=== PATIENT | female | born 1990 | race Caucasian/White ===

== ENCOUNTER 2024-08-31 11:48 | Emergency (ER) | payer BC, SELFPAY ==
[2024-08-31 12:00] VITALS: BP 127/71; PULSE 77; TEMP 37; O2SAT 100; BMI 21.8
--- NOTE | 2024-08-31 12:07 | ED.GENADUL1 ---
HPI HPI - General Adult General Chief complaint: Eye Problems Stated complaint: ENLARGED R PUPIL Time Seen by Provider: 08/31/24 12:03 Source: patient Mode of arrival: walk-in Limitations: no limitations History of Present Illness HPI narrative: 33-year-old female presents for a dilated right pupil that she noticed this morning. She denies any sort of trauma. She states that her vision is blurred in the right eye but it is always like that, chronically and not just today. No headache or localized weakness or issues with her left eye. Related Data Home Medications ?Medication ?Instructions ?Recorded ?Confirmed spironolactone 100 mg tablet 100 mg PO DAILY 08/31/24 08/31/24 Allergies Allergy/AdvReac Type Severity Reaction Status Date / Time amoxicillin Allergy Mild Hives Verified 08/31/24 11:59 Review of Systems ROS Narrative A ten point review of systems is negative except as noted above. PFSH PFSH Social History Little interest or pleasure in doing things: not at all Feeling down, depressed, or hopeless: not at all Exam Narrative Exam Narrative: Nurses note and vital signs reviewed and patient is not hypoxic. General: The patient appears well and in no apparent distress. Patient is resting comfortably on cart. Skin: Warm, dry, no pallor noted. There is no rash noted. Head: Normocephalic, atraumatic Eye: Normal conjunctiva, no drainage; right pupil is enlarged compared to the left. Extraocular movements are intact. Ears, Nose, Mouth, and Throat: oral mucosa is moist. Nares patent. Cardiovascular: Regular Rate and Rhythm Respiratory: Patient is in no distress, no accessory muscle use Back: non-tender GI: Soft and nontender Musculoskeletal: The patient has no evidence of calf tenderness, no pitting edema, symmetrical pulses noted bilaterally Neurological: A&O, normal speech Psychiatric: Cooperative Constitutional Vital Signs, click to edit/add: Last Vital Signs Temp 98.6 F 08/31/24 12:00 Pulse 77 08/31/24 12:00 Resp 16 08/31/24 12:00 BP 127/71 08/31/24 12:00 Pulse Ox 100 08/31/24 12:00 O2 Del Method Room Air 08/31/24 12:00 Course Vital Signs Vital signs: Vital Signs Temperature 98.6 F 08/31/24 12:00 Pulse Rate 77 08/31/24 12:00 Respiratory Rate 16 08/31/24 12:00 Blood Pressure 127/71 08/31/24 12:00 Pulse Oximetry 100 08/31/24 12:00 Oxygen Delivery Method Room Air 08/31/24 12:00 Temperature 98.6 F 08/31/24 12:00 Pulse Rate 77 08/31/24 12:00 Respiratory Rate 16 08/31/24 12:00 Blood Pressure 127/71 08/31/24 12:00 Pulse Oximetry 100 08/31/24 12:00 Oxygen Delivery Method Room Air 08/31/24 12:00 Medical Decision Making MDM Narrative Medical decision making narrative: When questioned about medications the patient remembered that she had a scopolamine cream that she used on her child before that child went to school today and the patient did not wash her hands and was putting make-up in her eye. This appears to be a side effect of the scopolamine. She was reassured and discharged home. Treatment diagnosis and follow-up were discussed with the patient. Differential Diagnosis Differential Diagnosis: Medication side effect, cranial nerve abnormality, intracranial abnormality Discharge Plan Discharge Chief Complaint: Eye Problems Clinical Impression: Medication side effect Patient Disposition: Home, Self-Care Time of Disposition Decision: 12:06 Condition: Good Mode of Transportation: Private Vehicle Prescriptions / Home Meds: No Action spironolactone 100 mg tablet 100 mg PO DAILY Print Language: [place]ish Instructions: Adverse Drug Reaction (ED) Referrals: Marquita Lynn MD [Primary Care Provider, Family Practice] - 1 week
== END 2024-08-31 12:13 | disposition home or self-care (01) ==
PROVIDERS: Emergency Provider Emergency Medicine; PCP Family Medicine
DX: H57.04 Mydriasis (principal); T44.3X5A Adverse effect of other parasympatholytics [anticholinergics and antimuscarinics] and spasmolytics, initial encounter
CPT/HCPCS: 99281